=== PATIENT | female | born 1970 | race Caucasian/White ===

== ENCOUNTER 2017-02-19 11:04 | Outpatient (CLI) | payer OTHER ==
[2017-02-19 11:56] LABS: Hematocrit 39.3 % (36.0-47.0); Mean Platelet Volume 6.7 fL (7.4-10.4); Red Blood Cell (RBC) Count 4.25 mill/uL (4.20-5.40); White Blood Cell (WBC) Count 5.9 thou/uL (4.8-10.8)
[2017-02-19 12:02] LABS: Anion Gap 14 mmol/L (10-20); BUN (Urea Nitrogen) 13 mg/dL (7.0-18.7); Calc. Creatinine Clearance 0 mL/min (70-130); Carbon Dioxide 24 mmol/L (22-29); Chloride 104 mmol/L (98-107); Estimated GFR-MDRD Greater than 90
[2017-02-19 12:11] LABS: PTT 23.6 SEC (22.9-36.1); Prothrombin Time 11.8 SEC (12.0-14.7)
== END 2017-02-19 11:05 | disposition home or self-care (01) ==
LOC: LABBT 11:04
PROVIDERS: ATTEND Surgery
DX: Z01.818 Encounter for other preprocedural examination (principal); M51.16 Intervertebral disc disorders with radiculopathy, lumbar region; M54.5 Low back pain
CPT/HCPCS: 80048; 85027; 85610; 85730; 93005; 93010

== ENCOUNTER 2017-02-23 07:49 | Day surgery (SDC) | payer OTHER ==
[2017-02-23] MEDS ORDERED: Sodium Chloride 0.9% 10 ML ONE (10:17)
[2017-02-23] MEDS ORDERED: Thrombin 5000 UNITS/5 ML VIAL ONE (10:17)
[2017-02-23] MEDS ORDERED: Bacitracin Zinc Ointment 30 gm TUBE ONE (10:17)
[2017-02-23] MEDS ORDERED: Lidocaine 2% PF 10 ML AMP (For Epidural Use) ONE (10:42)
[2017-02-23] MEDS ORDERED: Propofol 200 MG/20 ML VIAL ONE (10:42)
[2017-02-23] MEDS ORDERED: Dexamethasone 20 MG/5 ML VIAL ONE (10:42)
[2017-02-23] MEDS ORDERED: PHENYLEPHRINE-NS 100 MCG/ML 10 ML SYRINGE ONE (10:42)
[2017-02-23] MEDS ORDERED: Fentanyl 250 MCG/5 ML VIAL ONE (10:42)
[2017-02-23] MEDS ORDERED: Glycopyrrolate 0.2 MG/ML 5 ML SYRINGE ONE (10:42)
[2017-02-23] MEDS ORDERED: Ondansetron HCl/PF 4 MG/2 ML Vial ONE (10:42)
[2017-02-23] MEDS ORDERED: Vecuronium 10 MG VIAL ONE (10:42)
[2017-02-23] MEDS ORDERED: HYDROmorphone 2 MG/ML VIAL SLOW IVP PRN (13:00)
[2017-02-23] MEDS ORDERED: Morphine Sulfate 2 MG/ML SYRINGE SLOW IVP PRN (13:00)
[2017-02-23] MEDS ORDERED: Promethazine HCl 25 MG/ML VIAL IM PRN ×2 (13:00→13:13)
[2017-02-23] MEDS ORDERED: Meperidine HCl/PF 25 MG/ML VIAL SLOW IVP PRN (13:00)
[2017-02-23] MEDS ORDERED: Ondansetron HCl/PF 4 MG/2 ML Vial IVP PRN (13:00)
[2017-02-23] MEDS ORDERED: Promethazine HCl 25 MG/ML VIAL SLOW IVP PRN (13:00)
[2017-02-23] MEDS ORDERED: Bisacodyl 10 MG SUPP PR PRN (13:13)
[2017-02-23] MEDS ORDERED: Milk Of Magnesia 30 ML UDCUP PO PRN (13:13)
[2017-02-23] MEDS ORDERED: tiZANidine HCl 4 MG TAB PO PRN (13:13)
[2017-02-23] MEDS ORDERED: Acetaminophen/Codeine 30-300mg Tablet PO PRN (13:13)
[2017-02-23] MEDS ORDERED: HYDROcodone/Acetaminophen 7.5/325 mg Tablet PO PRN (13:13)
[2017-02-23] MEDS ORDERED: traMADol HCl 50 MG TAB PO PRN (13:13)
[2017-02-23] MEDS ORDERED: Fleet Enema 133 ML BOT PR PRN (13:13)
[2017-02-23] MEDS ORDERED: Mag-Al 1200 mg/1200 mg/30 ML UDCUP PO PRN (13:13)
[2017-02-23] MEDS ORDERED: Acetaminophen 325 MG TAB PO PRN (13:13)
[2017-02-23] MEDS ORDERED: Methocarbamol 500 MG TAB PO PRN (13:16)
[2017-02-23] MEDS ORDERED: Promethazine HCl 25 MG/ML VIAL ONE (13:35)
--- NOTE | 2017-02-23 15:22 | OP ---
OR: OR #12. WOUND TYPE: Type 1 wound. SURGEON: Lasha Bejarano M.D. [employer] PLAYER: Nahid Nunn PA-C. PREPROCEDURE DIAGNOSES: Right L5 and right S1 radiculopathy with right L5-S1 foraminal disk extrusi on with paracentral disk extrusion and compression of the traversing right S1 and right L5 nerve mukul ts. POSTPROCEDURE DIAGNOSES: Right L5 and right S1 radiculopathy with right L5-S1 foraminal disk extrus ion with paracentral disk extrusion and compression of the traversing right S1 and right L5 nerve ro ots. PROCEDURES: 1. Right L5-S1 hemilaminotomy and foraminotomy with paracentral diskectomy. 2. Transfacet right-sided L5-S1 approach for lateral disk extrusion for decompression of the right L5 nerve root due to foraminal disk extrusion. 3. Use of operative microscope for microdissection. DESCRIPTION OF PROCEDURE: After informed consent was obtained from the patient, the patient brought to OR 12. Proper patient pause and identification was carried out. She was placed under excellent general endotracheal anesthesia and positioned prone on the operating room table. All appropriate points were padded. We identified a midline linear thai that would allow for approach to the L5-S1 segment. This area was sterilely cleansed, prepared, and draped. Proper patient pause and identifi cation was carried out. The wound was then opened with a combination of sharp, monopolar, and blunt dissection, proceeded over the L5-S1 segment on the right side to expose the right L5-S1 hemilamina and facet complex, identified the pars as well. A hemilaminotomy was performed at this region expo sing the traversing right L5 nerve root. We then proceeded to modified transpedicular approach to e xpose the exiting right L5 nerve root and followed out into its foramen and identified disk material . Microscope was brought into the field for microdissection. Diskectomy was then performed, both i n the paracentral region, but also working out into the foramen to decompress the right S1 and right L5 nerve roots respectively. At the conclusion, we had excellent decompression of the right L5 ner ve root from its takeoff of the common dural tube out into the lateral portion of the foramen and as sured its freedom throughout. We also followed the right S1 nerve root throughout its takeoff out i nto its own foramen, as it passed medially to the right S1 pedicle. We were satisfied with our deco mpression. Copious irrigation occurred. Hemostasis was maximized. The wound was then closed in an atomic layers following the sprinkling of vancomycin powder. The patient then emerged from anesthes ia.
[2017-02-23] MEDS: Morphine Sulfate 2 MG/ML SYRINGE SLOW IVP PRN ×2 (17:26→22:26)
[2017-02-23] MEDS: Sodium Chloride 0.9% 1,000 ML IV SCH (17:26)
[2017-02-23 17:31] VITALS: BMI 29.2
[2017-02-23] MEDS ORDERED: Melatonin 3 MG TAB PO SCH (21:00)
[2017-02-24] MEDS: Sodium Chloride 0.9% 1,000 ML IV SCH (03:25)
[2017-02-24] MEDS: Morphine Sulfate 2 MG/ML SYRINGE SLOW IVP PRN (03:25)
[2017-02-24 08:03] VITALS: BP 99/64; TEMP 98.4
--- NOTE | 2017-02-24 09:18 | PRG ---
DATE OF SERVICE: 02/24/2017 Ms. Watt is doing well postoperative day 1 from right-sided hemilaminotomy L5-S1 approach and tra nsfacet for lateral disk extrusion compressing the S1 and L5 nerve roots respectively. She did have a minimal amount of pain in the posterior thigh on the right side, but this improved with muscle re laxant. She is ambulating with good strength in her lower extremities. We went over intraoperative and postoperative issues. She may be dismissed. We will arrange followup.
== END 2017-02-24 10:50 | disposition home or self-care (01) ==
LOC: SDC 07:49 → SURG A 13:13 → SDC 02-24 10:50
PROVIDERS: ATTEND Surgery
PROC: 00NY0ZZ Release Lumbar Spinal Cord, Open Approach (ICD-10-PCS; principal; 2017-02-24)
DX: M51.26 Other intervertebral disc displacement, lumbar region (principal); M54.16 Radiculopathy, lumbar region
CPT/HCPCS: 36416; 76001; 96374; A4216; J1100; J1170; J2001; J2270; J2405; J2550; J2704; J3010; J3370; J3490